=== PATIENT | female | born 1995 | race African-American/Black ===

== ENCOUNTER 2022-07-17 09:07 | Emergency (ER) | payer OTHER ==
[~2022-07-17] VITALS: Ht 170.2 cm; Wt 73.2 kg
[2022-07-17 09:15] VITALS: TEMP 98.9
[2022-07-17 09:52] LABS: BASO % 0.1 % (0.0-2.0); EOS # 0.1 K/mm3 (0.0-0.7); EOS % 1.9 % (0.0-4.0); GRAN # 4.9 K/mm3 (1.4-6.5); GRAN % 69.6 % (42.2-75.2); HEMOGLOBIN 10.6 g/dl (12.5-16.0); LYMPH # 1.4 K/mm3 (1.2-3.4); LYMPH % 20.5 % (20.0-51.0); MEAN CELL VOLUME 81 fl (80.0-100.0); MEAN CORPUSCULAR HEMOGLOBIN 28 pg (27-31); MEAN CORPUSCULAR HGB CONC 35 g/dl (33.0-37.0); MEAN PLATELET VOLUME 8.2 fl (7.4-10.4); MONO # 0.5 K/mm3 (0.1-0.6); MONO % 7.6 % (1.7-9.3); PLATELET COUNT 225 K/mm3 (130-400); RED BLOOD COUNT 3.76 M/mm3 (4.10-5.30); REDCELL DISTRIBUTION WIDTH-CV 12.7 % (11.5-14.5)
[2022-07-17 09:54] LABS: HEMATOCRIT 30.4 % (37.0-47.0)
[2022-07-17 10:12] LABS: ALBUMIN 3.5 gm/dL (3.5-5.0); BILIRUBIN,TOTAL 0.4 mg/dL (0.2-1.2); CALCIUM 8.6 mg/dL (8.4-10.2); CREATININE, serum 0.68 mg/dL (0.57-1.11); POTASSIUM 3.8 mmol/L (3.5-4.5)
[2022-07-17 10:27] LABS: COLLECTION METHOD CLEAN CATCH
[2022-07-17 10:35] LABS: MUCOUS Present (NOT PRESENT); SQUAMOUS EPITHELIAL 0-2 /hpf (0-10); URINE BACTERIA None Seen /hpf (NONE SEEN); URINE RBC 0-2 /hpf (0-2)
[2022-07-17 10:36] LABS: URINE APPEARANCE Clear (CLEAR/HAZY); URINE COLOR Yellow (YELLOW); URINE GLUCOSE Negative (NEGATIVE); URINE KETONE 2+ (NEGATIVE); URINE PROTEIN(semi-quant) TRACE (NEGATIVE); URINE UROBILINOGEN 0.2 E.U/dL (0.2-1.0)
[2022-07-17 10:37] LABS: URINE BLOOD TRACE-INTACT (NEGATIVE); URINE NITRATE Negative (NEGATIVE)
[2022-07-17 11:00] VITALS: BP 111/63; PULSE 69
== END 2022-07-17 11:00 | disposition home or self-care (01) ==
LOC: COL.ER 09:07
PROVIDERS: Emergency Medicine
DX: O20.0 Threatened abortion (principal); Z3A.14 14 weeks gestation of pregnancy

== ENCOUNTER 2022-08-04 02:44 | Emergency (ER) | payer OTHER ==
[~2022-08-04] VITALS: Ht 175.3 cm; Wt 72.7 kg
[2022-08-04 03:00] LABS: BASO % 0.2 % (0.0-2.0); EOS # 0.2 K/mm3 (0.0-0.7); EOS % 1.6 % (0.0-4.0); GRAN # 9.8 K/mm3 (1.4-6.5); GRAN % 76.6 % (42.2-75.2); HEMOGLOBIN 11.4 g/dl (12.5-16.0); LYMPH # 1.7 K/mm3 (1.2-3.4); LYMPH % 13.6 % (20.0-51.0); MEAN CELL VOLUME 82 fl (80.0-100.0); MEAN CORPUSCULAR HEMOGLOBIN 29 pg (27-31); MEAN CORPUSCULAR HGB CONC 35 g/dl (33.0-37.0); MEAN PLATELET VOLUME 8.3 fl (7.4-10.4); MONO # 0.9 K/mm3 (0.1-0.6); MONO % 7.4 % (1.7-9.3); PLATELET COUNT 267 K/mm3 (130-400); RED BLOOD COUNT 3.98 M/mm3 (4.10-5.30); REDCELL DISTRIBUTION WIDTH-CV 12.6 % (11.5-14.5)
[2022-08-04 03:04] LABS: HEMATOCRIT 32.7 % (37.0-47.0)
[2022-08-04 03:19] LABS: ALBUMIN 3.1 gm/dL (3.5-5.0); BILIRUBIN,TOTAL 0.4 mg/dL (0.2-1.2); CALCIUM 8.9 mg/dL (8.4-10.2); TOTAL PROTEIN 7.6 gm/dL (6.2-8.1)
[2022-08-04 03:43] LABS: COLLECTION METHOD CLEAN CATCH
[2022-08-04 03:44] LABS: CREATININE, serum 0.68 mg/dL (0.57-1.11)
[2022-08-04 03:48] LABS: URINE COLOR Red (YELLOW)
[2022-08-04 03:49] LABS: PH 6.5 (5.0-8.5); URINE APPEARANCE Hazy (CLEAR/HAZY); URINE BLOOD 3+ (NEGATIVE); URINE GLUCOSE Negative (NEGATIVE); URINE KETONE Negative (NEGATIVE); URINE NITRATE Negative (NEGATIVE); URINE PROTEIN(semi-quant) 2+ (NEGATIVE); URINE UROBILINOGEN 0.2 E.U/dL (0.2-1.0)
[2022-08-04 03:50] LABS: URINE BACTERIA Rare /hpf (NONE SEEN); URINE RBC >50 /hpf (0-2)
[2022-08-04] MEDS ORDERED: CEPHALEXIN500 M1 PO (06:29)
[2022-08-04 07:01] LABS: BASO % 0.3 % (0.0-2.0); EOS # 0.2 K/mm3 (0.0-0.7); EOS % 1.6 % (0.0-4.0); GRAN # 8.7 K/mm3 (1.4-6.5); GRAN % 76.2 % (42.2-75.2); LYMPH # 1.5 K/mm3 (1.2-3.4); LYMPH % 13.5 % (20.0-51.0); MEAN CELL VOLUME 83 fl (80.0-100.0); MEAN CORPUSCULAR HGB CONC 34 g/dl (33.0-37.0); MEAN PLATELET VOLUME 8.4 fl (7.4-10.4); MONO # 0.9 K/mm3 (0.1-0.6); MONO % 7.7 % (1.7-9.3); PLATELET COUNT 247 K/mm3 (130-400); RED BLOOD COUNT 3.47 M/mm3 (4.10-5.30); REDCELL DISTRIBUTION WIDTH-CV 12.7 % (11.5-14.5)
[2022-08-04 07:02] LABS: HEMATOCRIT 28.8 % (37.0-47.0); HEMOGLOBIN 9.8 g/dl (12.5-16.0); MEAN CORPUSCULAR HEMOGLOBIN 28 pg (27-31)
[2022-08-04] MEDS ORDERED: TYLENOL 325MG325 MG PO (08:59)
[2022-08-04 10:08] VITALS: BP 104/71; PULSE 67; TEMP 98.4
== END 2022-08-04 09:02 | disposition home or self-care (01) ==
LOC: COL.ER 02:44
PROVIDERS: Emergency Medicine
DX: O20.9 Hemorrhage in early pregnancy, unspecified (principal); O23.42 Unspecified infection of urinary tract in pregnancy, second trimester; O99.012 Anemia complicating pregnancy, second trimester; N39.0 Urinary tract infection, site not specified; D64.9 Anemia, unspecified; Z3A.17 17 weeks gestation of pregnancy

== ENCOUNTER 2022-08-05 07:43 | Outpatient (CLI) | payer OTHER ==
[~2022-08-05] VITALS: Ht 170.2 cm; Wt 72.3 kg
[2022-08-05] VITALS (32 sets, daily range): BP systolic 92–110; BP diastolic 50–68; PULSE 57–98; TEMP 99–99.5
[~2022-08-05 07:43] MED LIST: CEPHALEXIN500 M1 PO; TYLENOL 325MG325 MG PO
--- NOTE | 2022-08-05 08:49 | NUR ---
MTN notified of , referral number [id number].
--- NOTE | 2022-08-05 09:25 | NUR ---
0915 RN CALLS DOWN TO LAB; LAB STATES THEY STILL HAVE BLOOD TUBES ON HOLD FROM ED AND CAN USE THAT FOR LAB ORDERS RN JUST PLACED.
[2022-08-05 09:30] LABS: BASO % 0.3 % (0.0-2.0); EOS # 0.1 K/mm3 (0.0-0.7); GRAN # 7.3 K/mm3 (1.4-6.5); GRAN % 74.7 % (42.2-75.2); HEMOGLOBIN 11.5 g/dl (12.5-16.0); LYMPH # 1.6 K/mm3 (1.2-3.4); LYMPH % 16.7 % (20.0-51.0); MEAN CELL VOLUME 83 fl (80.0-100.0); MEAN CORPUSCULAR HEMOGLOBIN 28 pg (27-31); MEAN CORPUSCULAR HGB CONC 34 g/dl (33.0-37.0); MEAN PLATELET VOLUME 8.8 fl (7.4-10.4); MONO # 0.7 K/mm3 (0.1-0.6); MONO % 6.6 % (1.7-9.3); PLATELET COUNT 312 K/mm3 (130-400); RED BLOOD COUNT 4.09 M/mm3 (4.10-5.30); REDCELL DISTRIBUTION WIDTH-CV 12.7 % (11.5-14.5)
[2022-08-05 09:33] LABS: HEMATOCRIT 33.9 % (37.0-47.0)
--- NOTE | 2022-08-05 09:42 | NUR ---
0942- PATIENT REQUESTS TO SEE ; RN CALLS AND STATES SHE WILL STOP BY THE PATIENTS ROOM
--- NOTE | 2022-08-05 10:04 | NUR ---
Initial visit; Patient and her thanked Molding Plasterer for visiting. Molding Plasterer talked about , that we don't understand it, yet it could be that God allowed it because the baby wasn't healthy. God wants only good for us. He loves them. Molding Plasterer offered prayer of love and God's blessings. Family didn't want to name baby. Molding Plasterer mentioned that she is available to them today and any day they would like to visit and pray to recognize and talk about their grief.
--- NOTE | 2022-08-05 10:26 | NUR ---
0810- PT BROUGHT TO L&D FROM EMERGENCY DEPARTMENT AFTER DELIVERING. SPOUSE BEDSIDE WITH PATIENT AND PT IS TEARFUL BUT CALM AT THIS TIME. LAMIN WILEY STATES DR SALAS IS HEADED OVER FROM OFFICE TO DELIVER PLACENTA. 0820-MARITZA WILEY BEDSIDE, PERFORMS EXAM ON PT. RN X3 BEDSIDE AT THIS TIME ASSISTING MD AND PROVIDING EMOTIONAL SUPPORT TO PATIENT AND SPOUSE. 0851- MARITZA OUT OF ROOM. VERBAL ORDERS TO PERFORM FUNDAL EXAMS ON PT PER PROTOCOL AND THAT HE WILL BE BACK BEDSIDE LATER TO RE-EXAMINE PT. 0852- RN REMAINS BEDSIDE AND EXPLAINS PLAN OF CARE TO PATIENT. PT VERBALIZES UNDERSTANDING AND ALL QUESTIONS ARE ANSWERED AT THIS TIME.
--- NOTE | 2022-08-05 12:29 | NUR ---
1205 RN ENCOURAGES PT TO EAT SOMETHING BEFORE GETTING UP TO THE BATHROOM. PT REFUSES AND WANTS TO GET UP TO BATHROOM. 1206 RN ASSISTS PT TO BATHROOM; PT VOIDS AND RN ASSISTS WITH PERICARE 1208-PT FEELS LIGHTHEADED AND RN X2 ASSIST PT BACK TO BED. RN THEN RE ENOURAGES PT TO EAT SOMETHING AND PT AGREES. MENU AND INSTRUCTION ON HOW TO ORDER GIVEN. PT VERBALIZES UNDERSTANDING
--- NOTE | 2022-08-05 12:33 | NUR ---
1145- RN AND PT/SPOUSE DISCUSS DIFFERENT OPTIONS AVAILABLE FOR WHAT TO DO WITH BODY OF INFANT AFTER PT LEAVES HOSPITAL. INFORMATION GIVEN AND QUESTIONS ANSWERED
--- NOTE | 2022-08-05 13:25 | NUR ---
1320- RN CALLS HOME THAT PT PICKED OUT AND INFORMED THEM AT PATIENT AND SPOUSE ARE READY FOR THEM TO COME GET THE BABY.
--- NOTE | 2022-08-05 16:45 | NUR ---
1630- RN GIVES PT BOTH WRITTEN AND VERBAL DISCHARGE INSTRUCTIONS. RN EXPLAINS THAT PROVIDER WOULD LIKE TO SEE PT IN OFFICE IN 2-4 WEEKS AND SHE NEEDS TO CALL AND MAKE APPOINTMENT. PT INSTRUCTED ON SIGNS/SYMPTOMS TO WATCH OUT FOR AND WHEN TO CALL/COME BACK. PT VERBALIZES UNDERSTANDING AND HAS NO QUESTIONS AT THIS TIME
--- NOTE | 2022-08-05 16:46 | NUR ---
1500 NEWCOMER BEDSIDE TO ANSWER QUESTIONS FROM PATIENT
--- NOTE | 2022-08-05 16:47 | NUR ---
1600 RN HELPS PATIENT TO BATHROOM AND TO AMBULATE AROUND ROOM. PT HAS STEADY GAIT AND IS ABLE TO AMBULATE INDEPENDENTLY WITHOUT DIZZINESS OR FATIGUE.
== END 2022-08-05 16:35 | disposition home or self-care (01) ==
LOC: COL.ER 07:43 → LDR 07:43 → LDRO 07:43 → LDR 08:05 → EDSTATUS 09:00 → LDR 16:35 → LDRO 16:35
PROVIDERS: Obstetrics & Gynecology
DX: O03.9 Complete or unspecified spontaneous abortion without complication (principal)
CPT/HCPCS: OP; J2270; J2405; J2704; J3010; J7120

== ENCOUNTER 2023-09-11 19:56 | Outpatient (CLI) | payer OTHER ==
[~2023-09-11] VITALS: Ht 172.7 cm; Wt 80.0 kg
--- NOTE | 2023-09-11 20:05 | NUR ---
28 YO @ 33+6 PRESENTS TO OBT WITH COMPLAINT OF NO MOVEMENT IN THE PAST 2 DAYS. PT HAS A HISTORY OF SUBCHORIONIC HEMATOMA, SHORTENED CERVIX, AND 17 WK LABOR/DELIVERY. PT DENIES LOF/VAGINAL BLEEDING. PT STATES SHE HAS FELT NO MOVEMENT IN 2 DAYS. PT AMBULATED ONTO UNIT ACCOMPANIED BY SPOUSE AND UNIT TECH. PT CHANGED INTO GOWN AND EFM PLACED X2. PT STATES SHE WAS SEEN AND HAD THE HR MONITORED YESTERDAY AND WAS TOLD IT WAS NORMAL. RECORDS INDICATE SHE PRESENTED TO [facility] DEPARTMENT FOR HER CONCERNS ON 9Y2. PT AND SPOUSE REQUESTING US EVALUATION OF INFANT.
[2023-09-11 20:30] VITALS: BP 110/69; PULSE 80; TEMP 98.5
[2023-09-11] MEDS ORDERED: LR 1,000 ML IV PRN (21:00)
[2023-09-11] MEDS ORDERED: NATURAL IRON65 MG PO (22:36)
[2023-09-11] MEDS ORDERED: PRENATAL TABLET PO (22:36)
[2023-10-28] MEDS ORDERED: AMOXICILLIN 8751 TAB PO (14:26)
== END 2023-09-11 21:20 | disposition home or self-care (01) ==
LOC: LDRO 19:56
DX: O36.8130 Decreased fetal movements, third trimester, not applicable or unspecified (principal); Z3A.33 33 weeks gestation of pregnancy

== ENCOUNTER 2023-10-18 04:19 | Emergency (ER) | payer OTHER ==
[~2023-10-18] VITALS: Ht 160 cm; Wt 83.2 kg
[~2023-10-18 04:19] MED LIST changes: +NATURAL IRON65 MG PO; +PRENATAL TABLET PO
[2023-10-18 04:25] VITALS: TEMP 98.4
[2023-10-18 04:55] LABS: BASO % 0.2 % (0.0-2.0); EOS # 0.2 K/mm3 (0.0-0.7); EOS % 2.6 % (0.0-4.0); GRAN # 4.9 K/mm3 (1.4-6.5); GRAN % 60.1 % (42.2-75.2); HEMOGLOBIN 10.4 g/dl (12.5-16.0); LYMPH % 24.1 % (20.0-51.0); MEAN CELL VOLUME 83 fl (80.0-100.0); MEAN CORPUSCULAR HEMOGLOBIN 27 pg (27-31); MEAN CORPUSCULAR HGB CONC 33 g/dl (33.0-37.0); MONO % 11.9 % (1.7-9.3); PLATELET COUNT 248 K/mm3 (130-400); RED BLOOD COUNT 3.85 M/mm3 (4.10-5.30); REDCELL DISTRIBUTION WIDTH-CV 14.5 % (11.5-14.5)
[2023-10-18] MEDS ORDERED: Ondansetron 4 MG/2 ML VIAL IV PRN (05:00)
[2023-10-18 05:10] LABS: ALANINE AMINOTRANSFERASE 14 U/L (0-55); ALBUMIN 2.6 g/dL (3.5-5.0); ALKALINE PHOSPHATASE 99 U/L (40-150); ANION GAP 10 mmol/L (7-16); AST,SGOT 27 U/L (5-34); BILIRUBIN,TOTAL 0.5 mg/dL (0.2-1.2); CALCIUM 8.6 mg/dL (8.4-10.2); CHLORIDE 108 mEq/L (98-107); CREATININE, serum 0.69 mg/dL (0.57-1.11); GLUCOSE 91 mg/dL (70-99); POTASSIUM 3.7 mEq/L (3.5-4.5); SODIUM 137 mEq/L (136-145); TOTAL PROTEIN 6.6 g/dl (6.2-8.1)
[2023-10-18 05:19] LABS: BLOOD UREA NITROGEN < 5 mg/dL (7-19)
[2023-10-18 05:20] LABS: TROPONIN-I < 0.010 ng/mL (0.00-0.033)
[2023-10-18 05:30] VITALS: BP 97/71; PULSE 83
[2023-10-28] MEDS ORDERED: AMOXICILLIN 8751 TAB PO (14:26)
== END 2023-10-18 05:30 | disposition home or self-care (01) ==
LOC: COL.ER 04:19
PROVIDERS: Personal Emergency Response Attendant
DX: O26.893 Other specified pregnancy related conditions, third trimester (principal); R07.89 Other chest pain; Z3A.39 39 weeks gestation of pregnancy
CPT/HCPCS: J2405

== ENCOUNTER 2023-10-22 02:45 | Inpatient (IN) | payer OTHER ==
[2023-10-22] VITALS (64 sets, daily range): BP systolic 104–139; BP diastolic 56–85; PULSE 57–99; TEMP 97.2–98.7
[~2023-10-22] VITALS: Ht 172.7 cm; Wt 83.2 kg
--- NOTE | 2023-10-22 03:00 | NUR ---
PT TO UNIT AMBULATORY WITH CONCERNS OF SROM AT 0118. PT ORIENTED TO ROOM, CHANGED INTO GOWN. EFMX2 APPLIED, AMNIOSWAB POSITIVE, VS OBTAINED, SVE PERFORMED.
[2023-10-22] MEDS ORDERED: LR & Oxytocin 500 ML IV SCH (03:45)
[2023-10-22] MEDS ORDERED: LR 1,000 ML IV SCH (03:45)
[2023-10-22 05:01] LABS: BASO % 0.2 % (0.0-2.0); EOS # 0.2 K/mm3 (0.0-0.7); EOS % 2.5 % (0.0-4.0); GRAN # 5.8 K/mm3 (1.4-6.5); GRAN % 67.1 % (42.2-75.2); HEMOGLOBIN 10.8 g/dl (12.5-16.0); LYMPH # 1.7 K/mm3 (1.2-3.4); MEAN CELL VOLUME 80 fl (80.0-100.0); MEAN CORPUSCULAR HEMOGLOBIN 26 pg (27-31); MEAN CORPUSCULAR HGB CONC 32 g/dl (33.0-37.0); MEAN PLATELET VOLUME 8.8 fl (7.4-10.4); MONO # 0.8 K/mm3 (0.1-0.6); MONO % 9.4 % (1.7-9.3); REDCELL DISTRIBUTION WIDTH-CV 14.3 % (11.5-14.5)
[2023-10-22 05:20] LABS: HEMATOCRIT 33.5 % (37.0-47.0)
[2023-10-22 05:22] LABS: PLATELET COUNT 309 K/mm3 (130-400)
--- NOTE | 2023-10-22 05:55 | NUR ---
SVE UNCHANGED SINCE ARRIVAL. DISCUSSED DR. ANSARI'S RECOMMENDATION TO START PITOCIN AT THIS TIME WITH PT AND SPOUSE. PT DECLINES STARTING PITOCIN AT THIS TIME AND WOULD LIKE TO WAIT FOR DR. SALAS TO COME ON AT 0700 AND DISCUSS OPTIONS WITH HIM.
[2023-10-22] MEDS ORDERED: ePHEDrine 50 MG/10 ML VIAL IV PRN (07:15)
[2023-10-22] MEDS ORDERED: Ondansetron 4 MG/2 ML VIAL IV PRN (07:15)
[2023-10-22] MEDS ORDERED: Naloxone 0.4 MG/ML VIAL IV PRN (07:15)
[2023-10-22] MEDS ORDERED: diphenhydrAMINE 50 MG/ML 1 ML VIAL IV PRN (07:15)
[2023-10-22] MEDS ORDERED: diphenhydrAMINE 25 MG CAP PO PRN (07:15)
--- NOTE | 2023-10-22 07:22 | NUR ---
0722- IN PATIENTS ROOM TO DISCUSS PLAN OF CARE AND VERIFY LIE. DISCUSSES PITOCIN ADMINISTRATION FOR AUGMENTING LABOR WITH PATIENT, PATIENT AGREES. 0735- BEDSIDE SONO BY CONFIRMS VERTEX.
--- NOTE | 2023-10-22 12:12 | NUR ---
AT NURSES STATION, UPDATED REPORT GIVEN. TO [facility] TO CHECK ON PATIENT.
--- NOTE | 2023-10-22 14:52 | NUR ---
AT NURSES STATION AND NOTIFIED OF PATIENT PROGRESS, 2-/-2. FEELING MORE UNCOMFOTABLE WITH CONTRACTIONS.
[2023-10-22] MEDS ORDERED: ROPivacaine PF 0.2% 200 ML IV ONE (15:49)
--- NOTE | 2023-10-22 16:03 | NUR ---
1525- PATIENT REQUESTING EPIDURAL, LR BOLUS STARTED, AYAZ NOTIFIED. 1550- AYAZ AT [facility] TO DISCUSS EPIDURAL PLACEMENT WITH PATIENT, PATIENT AGREES. 1557- SINGLE SHOT ADMINISTERED BY AYAZ. PATIENT TOLERATED WELL. 1603- PATIENT REPOSITIONED TO WEDGED RIGHT. THIS RN REMAINS AT BEDSIDE TO MONITOR VITLA SIGNS.
--- NOTE | 2023-10-22 17:05 | NUR ---
AT BEDSIDE TO ASSESS PATIENT PROGRESS. SVE 2-3/-2. GIVES THIS RN A VERBAL ORDER TO INCREASE PITOCIN UP TO 30.
--- NOTE | 2023-10-22 19:40 | NUR ---
PT REQUESTED TO ROLL BACK TO HER LEFT SIDE. SHE DOESN'T FEEL COMFORTABLE ON HER RIGHT SIDE. REPOSITIONED TO LEFT LATERAL WITH PEANUT BALL.
--- NOTE | 2023-10-22 20:00 | NUR ---
pt states she is not comfortable on the right side and the left side she is feeling like her right leg is too heavy from the epidural. changed postion to left lateral, took the peanut ball out and placed pillows between her legs. she states that feels a little better.
--- NOTE | 2023-10-22 20:04 | NUR ---
PT STATES HER RIGHT LEG FEELS LIKE A SHOOTING PAIN FROM HER HIP TO HER LOWER LEG, SHE FEELS RESTLESS AND AGITATED. SHE IS NOT COMFORTABLE, HER CHEST FEELS HEAVY. THE EPIDURAL MEDICATION IS TO MUCH. IEXPLAINED I WOULD CALL [facility] TO COME AND EVALUATE AND MAYBE DECREASE THE EPIDUARL PUMP. i EXPLAINED SHE MAY START FEELING SOME OF THE CONTRACTION PAIN AGAIN. PT AGREED. AYAZ BAKER EQUIPMENT MAN CALLED HE IS COMING UP NOW. AYAZ BAKER CAME AND WENT OVER THE EPIURAL AND HOW IT WORKS AND HE DECREASED THE PUMP FROM 8 MU TO 7 MU. PT IS OK WITH THAT. I SAT PT UP TO A HIGH FOWLERS POSITION AND PLACED PILLOWS FOR COMFORT. AFTER SITTING UP A FEW MINS PT STATES HER CHEST FEELS BETTER AND THE SHOOTING PAIN DOWN HER LEG IS DECREASING.
[2023-10-22] MEDS ORDERED: Penicillin G Potassium 5,000,000 UNITS in NS 100 ML IV ONE (20:45)
--- NOTE | 2023-10-22 21:52 | NUR ---
TACHYSYSTOLE NOTED FOR 240 SECS. FHR WNL NO DECELS. PITOCIN DECREASED FROM 28 MU TO 24 MU.
[2023-10-23] VITALS (34 sets, daily range): BP systolic 102–127; BP diastolic 58–86; PULSE 71–106; TEMP 98.7–99.5
[2023-10-23] MEDS ORDERED: Penicillin G Potassium 2,500,000 UNITS in NS 100 ML IV SCH (00:43)
--- NOTE | 2023-10-23 00:50 | NUR ---
FHR DECEL DOWN FROM BASELINE OF 125 TO 90-110 BPM FOR 6 MIN. SVE 7/90/-2. POSTION CHANGED TO LEFT LATERAL. PILLOWS PLACED TO MAINTAIN POSITION. FHR BACK TO BASELINE WITH MILD VARIABLES WITH CTX'S.
--- NOTE | 2023-10-23 01:20 | NUR ---
FHR DECEL FROM BASELINE OF 125 DOWN TO 80-90'S FOR 5 MIN. PITOCIN OFF, POSTIONED TO BACK FOR SVE /0 STATION. BABY IS COMING DOWN INTO THE PELVIS MORE. CHANGED POSTION TO LEFT LATERAL. 0135 DR GUPTA CALLED AND UPDATED ON FHR DECEL, POSITION CHANGES, PITOCIN OFF, FHR VARIABLE DECELS WITH CTX'S. INSTRUCTIONS TO LEAVE PITOCIN OFF FOR AT LEAST 30 MINS TO LET HER BODIES RECEPTORS RESET AND FHR NORMALIZE. THEN RESTART PITOCIN AT 2 MU AND GO UP FROM THERE.
--- NOTE | 2023-10-23 04:50 | NUR ---
PT SITTING UP IN HIGH FOWLERS, VOMITING. PT DECLINED ZOFRAN AT THIS TIME. COOL CLOTHS TO NECK AND FORHEAD.
--- NOTE | 2023-10-23 05:30 | NUR ---
pt vomiting again. she is requesting zofran now. zofran 4 mg IVP given.
--- NOTE | 2023-10-23 06:15 | NUR ---
DR PATRICK UPDATED ON PT COMPLETE AND +2. CAN START PUSHING WITH PT.
--- NOTE | 2023-10-23 06:24 | NUR ---
REPORT GIVEN TO ROBERT ORR SHE WILL START PUSHING WITH PT.
--- NOTE | 2023-10-23 06:30 | NUR ---
THIS RN AT BEDSIDETO PREPARE PATIENT TO PUSH. PROLONGED DECELERATION INTO THE 60s NOTED PATIENT REPOSITIONED TO LEFT LATERAL, NOTIFIED
--- NOTE | 2023-10-23 06:40 | NUR ---
THIS RN BEGINS PUSHING WITH PATIENT, PATIENT PUSHES WITH GOOD EFFORT AND DMOVES HEAD WELL.
--- NOTE | 2023-10-23 06:43 | NUR ---
AT BEDSIDE ASSESSING PUSHING EFFORTS.
--- NOTE | 2023-10-23 07:20 | NUR ---
TO PATIENTS ROOM TO PREPARE FOR DELIVERY.
--- NOTE | 2023-10-23 07:39 | NUR ---
0720- IN PATIENTS ROOM FOR DELIVERY. 0725- BEGINS PUSHING WITH PATIENT. 0734- FHR NOT IN THE 80s, PATIENT ENCOURAGED TO CONTINUE TO PUSH. SPONTANEOUS DELIVERY OF INFANT HEAD AND BODY. 0739- SPONTANEOUS DELIVERY OF PLACENTA, PITOCIN STARTED AT 333mU/HR ORDERED AND PER PROTOCOL.
[2023-10-23] MEDS ORDERED: Magnes Hydrox (MOM) 80 MG/ML 30 ML CUP PO PRN (08:00)
[2023-10-23] MEDS ORDERED: Loratadine 10 MG TAB PO PRN (08:00)
[2023-10-23] MEDS ORDERED: Sennosides/Docusate 8.6-50 MG TAB PO SCH (08:00)
[2023-10-23] MEDS ORDERED: Phenylephrine/Mineral Oil/Petrolatum 57 GM TUBE RC PRN (08:45)
[2023-10-23] MEDS ORDERED: oxyCODONE 5 MG TAB PO PRN (08:45)
[2023-10-23] MEDS ORDERED: Witch Hazel 50% Pads Bulk TUB TP PRN (08:45)
[2023-10-23] MEDS ORDERED: Mag/Al Hydrox/Simeth Susp 30 ML CUP PO PRN (08:45)
[2023-10-23] MEDS ORDERED: Measles/Mumps/Rubella Virus Vaccine Live w Diluent 0.5 ML VIAL SQ SCH (08:45)
[2023-10-23] MEDS ORDERED: Naloxone 0.4 MG/ML VIAL IV PRN (08:45)
[2023-10-23] MEDS ORDERED: Acetaminophen 500 MG TAB PO PRN (08:45)
[2023-10-23] MEDS ORDERED: Ibuprofen 600 MG TAB PO SCH (08:45)
--- NOTE | 2023-10-23 10:25 | NUR ---
PATIENT REQUESTING TO VOID. THIS RN TO BEDSIDE. PATIENT SITS ON SIDE OF BED WITHOUT DIZZINESS, PATIENT ASSISTED TO STANDING AND FEELS STEADY ON HER FEET. PATIENT AMBULATES WITH THIS RN TO RESTROOM AND VOIDS, PERICARE COMPLETED BY PATIENT, PATIENT ASSISTED INTO A CLEAN GOWN AND AMBULATES TO ROOM WITH THIS RN. PATIENT ORIENTED TO ROOM AND ASSITED INTO BED.
[2023-10-23] MEDS ORDERED: traZODone 50 MG TAB PO PRN (21:00)
[2023-10-24 08:04] LABS: HEMATOCRIT 29.8 % (37.0-47.0); HEMOGLOBIN 9.9 g/dl (12.5-16.0)
[2023-10-24] MEDS ORDERED: IBU600 MG PO (09:40)
[2023-10-28] MEDS ORDERED: AMOXICILLIN 8751 TAB PO (14:26)
== END 2023-10-24 16:35 | disposition home or self-care (01) | DRG 807 ==
LOC: LDRO 02:45 → LDR 03:48 → OB 10-23 10:25
PROVIDERS: Obstetrics & Gynecology; ADMIT Obstetrics & Gynecology
PROC: 10E0XZZ Delivery of Products of Conception, External Approach (ICD-10-PCS; principal; 2023-10-23)
PROC: 0KQM0ZZ Repair Perineum Muscle, Open Approach (ICD-10-PCS; 2023-10-23)
DX: O99.284 Endocrine, nutritional and metabolic diseases complicating childbirth (principal); Z37.0 Single live birth; E03.8 Other specified hypothyroidism; O99.02 Anemia complicating childbirth; Z3A.39 39 weeks gestation of pregnancy; D64.9 Anemia, unspecified; O34.13 Maternal care for benign tumor of corpus uteri, third trimester; D25.9 Leiomyoma of uterus, unspecified; O77.0 Labor and delivery complicated by meconium in amniotic fluid; O69.81X0 Labor and delivery complicated by cord around neck, without compression, not applicable or unspecified; O70.1 Second degree perineal laceration during delivery
CPT/HCPCS: J2405; J2540; J2590; J2795; J7120